=== PATIENT | male | born 1970 | race Caucasian/White ===

== ENCOUNTER 2025-04-10 20:22 | Emergency (ER) | payer MEDICAID ==
[~2025-04-10] VITALS: Ht 167.6 cm; Wt 100.0 kg
[2025-04-10 20:43] VITALS: O2SAT 100
[2025-04-10] MEDS: ACETAMINOPHEN 500MG TABLET PO ONE (21:44)
[2025-04-10] MEDS: FLUORESCEIN SODIUM 1MG/STRIP BOTHEYE ONE (22:08)
[2025-04-10] MEDS: TETRACAINE 0.5% OPHTH DROPS 4ML BOTHEYE ONE (22:08)
[2025-04-10] MEDS ORDERED: ERYT1OIN6 EACHEYE (22:32)
[2025-04-10 22:47] VITALS: BP 122/81; PULSE 64; RESP 20; TEMP 36.7; O2SAT 100
== END 2025-04-10 22:47 | disposition home or self-care (01) ==
LOC: ER 20:22
DX: S05.02XA Injury of conjunctiva and corneal abrasion without foreign body, left eye, initial encounter (principal); W44.9XXA Unspecified foreign body entering into or through a natural orifice, initial encounter; Y93.89 Activity, other specified; Y92.89 Other specified places as the place of occurrence of the external cause; Y99.8 Other external cause status
CPT/HCPCS: 99283

== ENCOUNTER 2025-04-11 19:09 | Emergency (ER) | payer MEDICAID ==
[~2025-04-11] VITALS: Ht 162.6 cm; Wt 100.0 kg
[~2025-04-11 19:09] MED LIST: ERYT1OIN6 EACHEYE
[2025-04-11] MEDS: TETRACAINE 0.5% OPHTH DROPS 4ML BOTHEYE ONE (21:14)
[2025-04-11] MEDS: FLUORESCEIN SODIUM 1MG/STRIP RIGHTEYE ONE (21:15)
[2025-04-11] MEDS: IBUPROFEN 600MG TABLET PO ONE (21:15)
[2025-04-11 23:28] VITALS: BP 133/76; PULSE 62; RESP 16; TEMP 36.8; O2SAT 98
== END 2025-04-11 23:28 | disposition home or self-care (01) ==
LOC: ER 19:09
DX: H57.11 Ocular pain, right eye (principal)
CPT/HCPCS: 99283